=== PATIENT | male | born 1945 | race Caucasian/White ===

== ENCOUNTER 2019-11-15 17:27 | Observation (INO) | payer OTHER ==
[~2019-11-15] VITALS: Ht 172.7 cm; Wt 90.2 kg
[2019-11-15] MEDS ORDERED: AMLO10 PO (17:44)
[2019-11-15] MEDS ORDERED: ASPIR 8181 M1 PO (17:45)
[2019-11-15] MEDS ORDERED: BUSP10 PO (17:45)
[2019-11-15] MEDS ORDERED: [UNRECOGNIZED DRUG - OTHER] PO (17:45)
[2019-11-15] MEDS ORDERED: CLOBET30L TOP (17:46)
[2019-11-15] MEDS ORDERED: B-121000 MC3 PO (17:47)
[2019-11-15] MEDS ORDERED: DIVA500EC PO (17:47)
[2019-11-15] MEDS ORDERED: FINA5 PO (17:48)
[2019-11-15] MEDS ORDERED: GABA300 PO (17:48)
[2019-11-15] MEDS ORDERED: HYDPAM50 PO (17:49)
[2019-11-15] MEDS ORDERED: LACT PO (17:49)
[2019-11-15] MEDS ORDERED: KETO15TC TOP (17:49)
[2019-11-15] MEDS ORDERED: LISI20 PO (17:55)
[2019-11-15] MEDS ORDERED: LEVSOD50 PO (17:55)
[2019-11-15] MEDS ORDERED: Anti-Diarrheal2 MG PO (17:56)
[2019-11-15] MEDS ORDERED: OMEP20ER PO (17:57)
[2019-11-15] MEDS ORDERED: MIRT15 PO (17:57)
[2019-11-15] MEDS ORDERED: TRAM50 PO (17:58)
[2019-11-15] MEDS ORDERED: SILD50TA PO (17:58)
[2019-11-15] MEDS ORDERED: TAMS.4ER PO (17:58)
[2019-11-15] MEDS ORDERED: TRAZ100 PO (17:59)
[2019-11-15] MEDS ORDERED: ZIPR40 PO (17:59)
--- NOTE | 2019-11-15 20:26 | NUR ---
ADMISSION: PATIENT IS RECIEVED FROM ER VIA STRETCHER. NO REPORT OF PAIN, NAUSEA OR DISCOMFORT. PATIENT HAS A CARE ASST ASSIST WITH MEDICATIONS AT THE [place] [facility] AND CAN NOT COMPLETE MED REC. 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 WOUND THAT IS HEALED NOW BUT HE WAS HOSPITAIZED TWO MONTHS AGO IN A [facility]CHIATR[facility] FACILITY.
[2019-11-15 20:37] LABS: Hematocrit 37.8 % (37.0-53.0); Hemoglobin 12.2 g/dL (13.5-17.5); Mean Corpuscular HGB 29.7 pg (26.0-34.0); Mean Corpuscular HGB Conc 32.3 g/dL (31.5-36.5); Mean Corpuscular Volume 92 fL (80-100); Mean Platelet Volume 12.2 fL (9.1-12.4); Platelet Count 131 K/mm3 (150-400); RDW Coefficient Variation 13.7 % (11.7-14.2); RDW Standard Deviation 46.7 fL (35.1-46.3); Red Blood Cell Count 4.11 M/mm3 (4.30-5.90); White Blood Cell Count 5.63 K/mm3 (4.00-11.30)
--- NOTE | 2019-11-15 21:39 | NUR ---
LAB CLARIFICATION: H&H IS ORDERED FOR 2199, H&H WAS DRAWN ON ADMISSION AT 2027, RESULT 12.2/37.8. MARIA GUADALUPE BAKER [employer] INST[employer]ER WAS NOTIFIED AND ORDER TO RETIME LAB FOR MIDNIGHT AND THEN O5OO IN THE AM. LAB WAS NOTIFIED OF CHANGE.
[2019-11-15] MEDS ORDERED: Hair, Skin & N1 EACH PO (23:28)
[2019-11-16 00:37] LABS: Hematocrit 33.8 % (37.0-53.0); Hemoglobin 10.8 g/dL (13.5-17.5); Mean Corpuscular HGB 29.3 pg (26.0-34.0); Mean Corpuscular Volume 92 fL (80-100); Mean Platelet Volume 12.1 fL (9.1-12.4); Platelet Count 117 K/mm3 (150-400); RDW Coefficient Variation 13.9 % (11.7-14.2); RDW Standard Deviation 46.8 fL (35.1-46.3); Red Blood Cell Count 3.68 M/mm3 (4.30-5.90)
[2019-11-16 07:04] LABS: Hematocrit 32.4 % (37.0-53.0); Hemoglobin 10.5 g/dL (13.5-17.5); Mean Corpuscular HGB 29.7 pg (26.0-34.0); Mean Corpuscular HGB Conc 32.4 g/dL (31.5-36.5); Mean Corpuscular Volume 92 fL (80-100); Mean Platelet Volume 12.2 fL (9.1-12.4); Platelet Count 129 K/mm3 (150-400); RDW Coefficient Variation 13.8 % (11.7-14.2); RDW Standard Deviation 46.3 fL (35.1-46.3); Red Blood Cell Count 3.54 M/mm3 (4.30-5.90); White Blood Cell Count 4.69 K/mm3 (4.00-11.30)
--- NOTE | 2019-11-16 07:24 | NUR ---
SHIFT SUMMARY: PATIENT IS A&O X4, WITHDRAWN, NO REPORTS OF PAIN, FINE TREMORS ARE OBSERVED IN BILAT UPPER EXT. BP IS ELEVATED THIS AM, PATIENT IS ASYMPTOMATIC. INFECT CONTROL RN REVIEWED MRSA HISTORY AND IT IS DECIDED PATIENT DOES REQUIRE CONTACT ISOLATION.
--- NOTE | 2019-11-16 12:29 | NUR ---
History, Chart, Medications and Allergies reviewed before start of procedure. Patient confirms NPO status and agrees with scheduled surgery.
--- NOTE | 2019-11-16 12:52 | NUR ---
11/16/19 1252 Fuad Rush PATIENT DETERMINED TO BE ASA APPROPRIATE FOR PROPOFOL SEDATION PRIOR TO START OF PROCEDURE BY DR. Kristine Newberry PlacedPatient to ENDO 13-LEAD EKG REVIEWED WITH PHYSICIAN PRIOR TO START OF PROCEDURE.History, Chart, Medications and Allergies reviewed before start of procedure. MONITOR INTACT WITH CONTINUOUS PULSE OXIMETRY AND INTERMITTENT BP.O2 VIA N/C INTACT THROUGHOUT SEDATION/PROCEDURE.
--- NOTE | 2019-11-16 13:47 | NUR ---
RECEIVED REPORT FROM [facility] WILLIAMSON S/P PROCEDURE. PATIENT RETURNED TO ROOM 326 AT APPROX 1330 AND IS DOING WELL.
--- NOTE | 2019-11-16 17:22 | NUR ---
PATIENT HAS BEEN MOANING AND GROANING SINCE RETURNING FROM HIS SCOPE BECAUSE DR DELAROSA INFORMED HIM THAT HE COULD DISCHARGE TODAY HOWEVER DR ZAMORA FELT DIFFERENTLY AND SAID HE NEEDED TO STAY ONE MORE NIGHT. THE PATIENTS VITALS HAVE BEEN STABLE. DENIES PAIN AND DISCOMFORT. INDEPENDENT IN ROOM. REMAINS ON PROTONIX DRIP. WILL CONTINUE TO MONITOR AND PROVIDE CARE NEEDED.
--- NOTE | 2019-11-16 22:16 | NUR ---
VEIWS: PATIENT SCORES A 4 ON VIWEWS ON ADMISSION, TELI IS ON AND THERE IS ALOT OF ARTIFACT, UNABLE TO DETERMINE UNDERLINING RYTHM, RATE IS 80. THIS CHANGES VEIW SCORE. PATIENT REPORTS NO CHEST PAIN.
[2019-11-17 07:02] LABS: BASOPHILS ABSOLUTE AUTO 0.02 K/mm3 (0.00-0.23); BASOPHILS PERCENT AUTO 0 % (0-2); EOSINOPHILS ABSOLUTE AUTO 0.17 K/mm3 (0.00-0.68); EOSINOPHILS PERCENT AUTO 3 % (0-6); Hematocrit 31.5 % (37.0-53.0); Hemoglobin 10.2 g/dL (13.5-17.5); IMMATURE GRAN ABSOLUTE AUTO 0.01 K/mm3 (0.00-0.10); IMMATURE GRAN PERCENT AUTO 0 % (0-1); LYMPHOCYTES ABSOLUTE AUTO 1.87 K/mm3 (0.84-5.20); LYMPHOCYTES PERCENT AUTO 33 % (21-46); MONOCYTES ABSOLUTE AUTO 0.55 K/mm3 (0.16-1.47); MONOCYTES PERCENT AUTO 10 % (4-13); Mean Corpuscular HGB 29.5 pg (26.0-34.0); Mean Corpuscular HGB Conc 32.4 g/dL (31.5-36.5); Mean Corpuscular Volume 91 fL (80-100); Mean Platelet Volume 12.3 fL (9.1-12.4); NEUTROPHILS ABSOLUTE AUTO 2.98 K/mm3 (1.96-9.15); NEUTROPHILS PERCENT AUTO 53 % (41-73); Platelet Count 132 K/mm3 (150-400); RDW Standard Deviation 46.3 fL (35.1-46.3); Red Blood Cell Count 3.46 M/mm3 (4.30-5.90)
[2019-11-17 07:19] LABS: Bun/Creatinine Ratio 14.1 (12.0-20.0); Calcium, Blood 8.5 mg/dL (8.5-10.1); Creatinine, Blood 1.77 mg/dL (0.60-1.20); Potassium, Blood 3.8 mmol/L (3.5-5.5)
--- NOTE | 2019-11-17 07:23 | NUR ---
SHIFT SUMMARY: PATIENT IS A&OX4, NO COMPLIANTS OF PAIN. VS ARE STABLE WITH ELEVATED BP'S, ASYMPTOMATIC. PATIENT TOLERATED 100% OF DINNER AND SNACK LAST EVENING S/P SCOPE, NO SWALLOW DIFFICULTIES. PATIENT SHOWERED INDEPENDANTLY AND REPORTED SLEEPING WELL.
[2019-11-17] MEDS ORDERED: ACET325 PO (09:47)
--- NOTE | 2019-11-17 10:30 | NUR ---
CALLED [facility] ABOUT SCHEDULING APPT FOR WITHIN WEEK. ST THEY WILL CALL HIM TOMORROW AND SCHEDULE.
--- NOTE | 2019-11-17 11:11 | NUR ---
REVIEW D'C W/PATIENT. FAMILY SERVICES ASSISTANT IN ROOM TO ARRANGE RIDE. AWARE WILL CALL WITH RESULTS OR TO SET UP APPT. AWARE [facility] WILL CALL TOMORROW TO SET UP APPT. REVIEW HOME MEDS. ANSWER ALL QUESTIONS. AWAITING RIDE.
== END 2019-11-17 13:48 | disposition home or self-care (01) ==
LOC: ER 17:27 → MEDS 17:28 → ENPENDDIS 11-17 10:23 → MEDS 11-17 13:48
PROVIDERS: Family Medicine; Internal Medicine Gastroenterology; ADMIT Hospitalist
PROC: 0DB68ZZ Excision of Stomach, Via Natural or Artificial Opening Endoscopic (ICD-10-PCS; principal; 2019-11-16 12:15)
PROC: 0W3P8ZZ Control Bleeding in Gastrointestinal Tract, Via Natural or Artificial Opening Endoscopic (ICD-10-PCS; 2019-11-16 12:15)
DX: K31.7 Polyp of stomach and duodenum (principal); K25.4 Chronic or unspecified gastric ulcer with hemorrhage; I99.8 Other disorder of circulatory system; K21.0 Gastro-esophageal reflux disease with esophagitis; D62 Acute posthemorrhagic anemia; G31.84 Mild cognitive impairment of uncertain or unknown etiology; I10 Essential (primary) hypertension; N40.0 Benign prostatic hyperplasia without lower urinary tract symptoms; E03.9 Hypothyroidism, unspecified; F41.9 Anxiety disorder, unspecified; F31.9 Bipolar disorder, unspecified; E66.9 Obesity, unspecified; Z79.899 Other long term (current) drug therapy; Z79.82 Long term (current) use of aspirin; Z86.718 Personal history of other venous thrombosis and embolism; Z66 Do not resuscitate
CPT/HCPCS: 36415; 80048; 82272; 85025; 85027; 86850; 86900; 86901; 88305; 88342; 93005; 93010; 96361; 96365; 96366; 96374; 96376; 99285-25; A9270-GY; C9113; G0378; J2704; J7030; J7120

== ENCOUNTER 2020-02-07 13:13 | Emergency (ER) | payer OTHER ==
[~2020-02-07] VITALS: Ht 177.8 cm; Wt 81.7 kg
[~2020-02-07 13:13] MED LIST: ACET325 PO; AMLO10 PO; ASPIR 8181 M1 PO; Anti-Diarrheal2 MG PO; B-121000 MC3 PO; BUSP10 PO; CLOBET30L TOP; DIVA500EC PO; FINA5 PO; GABA300 PO; HYDPAM50 PO; Hair, Skin & N1 EACH PO; KETO15TC TOP; LACT PO; LEVSOD50 PO; LISI20 PO; MIRT15 PO; OMEP20ER PO; SILD50TA PO; TAMS.4ER PO; TRAM50 PO; TRAZ100 PO; ZIPR40 PO; [UNRECOGNIZED DRUG - OTHER] PO
[2020-02-07 13:41] LABS: Source, Urine Voided
[2020-02-07 13:44] LABS: Bilirubin, Urine Neg (Neg); Blood, Urine 4+ (Neg); Glucose Qualitative, Urine Neg (Neg); Ketones, Urine 1+ (Neg); Leukocyte Esterase, Urine 1+ (Neg); Nitrite, Urine Neg (Neg); Protein, Urine 2+ (Neg); Urobilinogen, Urine NORM (Normal)
[2020-02-07 14:01] LABS: Appearance, Urine Clear (Clear); Color, Urine Yellow (P-Yellow)
[2020-02-07 14:03] LABS: Bacteria Not Seen /hpf; Squamous Epithelial Cells Not Seen /hpf (Few)
[2020-02-07 14:18] LABS: BASOPHILS ABSOLUTE AUTO 0.02 K/mm3 (0.00-0.23); BASOPHILS PERCENT AUTO 0 % (0-2); EOSINOPHILS PERCENT AUTO 0 % (0-6); Hematocrit 41.1 % (37.0-53.0); Hemoglobin 13.1 g/dL (13.5-17.5); IMMATURE GRAN ABSOLUTE AUTO 0.12 K/mm3 (0.00-0.10); IMMATURE GRAN PERCENT AUTO 1 % (0-1); LYMPHOCYTES ABSOLUTE AUTO 0.86 K/mm3 (0.84-5.20); LYMPHOCYTES PERCENT AUTO 5 % (21-46); MONOCYTES ABSOLUTE AUTO 1.47 K/mm3 (0.16-1.47); MONOCYTES PERCENT AUTO 8 % (4-13); Mean Corpuscular HGB 29.7 pg (26.0-34.0); Mean Corpuscular HGB Conc 31.9 g/dL (31.5-36.5); Mean Corpuscular Volume 93 fL (80-100); Mean Platelet Volume 12.3 fL (9.1-12.4); NEUTROPHILS ABSOLUTE AUTO 15.93 K/mm3 (1.96-9.15); NEUTROPHILS PERCENT AUTO 87 % (41-73); Platelet Count 120 K/mm3 (150-400); RDW Coefficient Variation 13.8 % (11.7-14.2); RDW Standard Deviation 46.8 fL (35.1-46.3); Red Blood Cell Count 4.41 M/mm3 (4.30-5.90)
[2020-02-07 14:49] LABS: Albumin, Blood 2.8 g/dL (3.4-5.0); Albumin/Globulin Ratio 0.6 (0.8-1.8); Bilirubin, Total 0.6 mg/dL (0.1-1.0); Bun/Creatinine Ratio 8.8 (12.0-20.0); Creatinine, Blood 1.6 mg/dL (0.60-1.20); Globulin, Blood 4.6 g/dL (2.2-4.0); Potassium, Blood 4.2 mmol/L (3.5-5.5); Total Protein, Blood 7.4 g/dL (6.4-8.2)
[2020-02-07] MEDS ORDERED: Cipro500 MG PO (15:44)
== END 2020-02-07 16:48 | disposition home or self-care (01) ==
LOC: ER 13:13
PROVIDERS: Emergency Medicine
DX: N39.0 Urinary tract infection, site not specified (principal); I10 Essential (primary) hypertension; F41.9 Anxiety disorder, unspecified; N40.0 Benign prostatic hyperplasia without lower urinary tract symptoms; K21.9 Gastro-esophageal reflux disease without esophagitis; E03.9 Hypothyroidism, unspecified; F31.9 Bipolar disorder, unspecified; Z88.8 Allergy status to other drugs, medicaments and biological substances; Z79.899 Other long term (current) drug therapy; Z79.82 Long term (current) use of aspirin; Z87.891 Personal history of nicotine dependence
CPT/HCPCS: 36415; 80053; 81001; 83605; 83690; 85025; 87077; 87086; 87186; 96365; 99284-25; J0696; J7030

== ENCOUNTER 2020-02-08 16:46 | Emergency (ER) | payer OTHER ==
[~2020-02-08] VITALS: Ht 180.3 cm; Wt 90.7 kg
[~2020-02-08 16:46] MED LIST changes: +Cipro500 MG PO
[2020-02-08 17:25] LABS: BASOPHILS ABSOLUTE AUTO 0.02 K/mm3 (0.00-0.23); BASOPHILS PERCENT AUTO 0 % (0-2); EOSINOPHILS ABSOLUTE AUTO 0.02 K/mm3 (0.00-0.68); EOSINOPHILS PERCENT AUTO 0 % (0-6); Hematocrit 39.5 % (37.0-53.0); Hemoglobin 12.8 g/dL (13.5-17.5); IMMATURE GRAN ABSOLUTE AUTO 0.04 K/mm3 (0.00-0.10); IMMATURE GRAN PERCENT AUTO 0 % (0-1); LYMPHOCYTES ABSOLUTE AUTO 0.85 K/mm3 (0.84-5.20); LYMPHOCYTES PERCENT AUTO 7 % (21-46); MONOCYTES ABSOLUTE AUTO 1.01 K/mm3 (0.16-1.47); MONOCYTES PERCENT AUTO 8 % (4-13); Mean Corpuscular HGB 30.2 pg (26.0-34.0); Mean Corpuscular HGB Conc 32.4 g/dL (31.5-36.5); Mean Corpuscular Volume 93 fL (80-100); Mean Platelet Volume 12.4 fL (9.1-12.4); NEUTROPHILS ABSOLUTE AUTO 10.58 K/mm3 (1.96-9.15); NEUTROPHILS PERCENT AUTO 84 % (41-73); Platelet Count 129 K/mm3 (150-400); RDW Coefficient Variation 13.6 % (11.7-14.2); RDW Standard Deviation 46.5 fL (35.1-46.3); Red Blood Cell Count 4.24 M/mm3 (4.30-5.90); White Blood Cell Count 12.52 K/mm3 (4.00-11.30)
[2020-02-08 17:38] LABS: Alanine Aminotransfer (ALT/SGP 17 U/L (12-78); Albumin, Blood 2.8 g/dL (3.4-5.0); Albumin/Globulin Ratio 0.6 (0.8-1.8); Alk Phos 66 U/L (50-136); Anion Gap 5 mmol/L (6-16); Aspartate Aminotrans (AST/SGOT 11 U/L (12-37); Bilirubin, Total 0.5 mg/dL (0.1-1.0); Blood Urea Nitrogen 15 mg/dL (8-24); Bun/Creatinine Ratio 10.1 (12.0-20.0); CO2, Blood 25 mmol/L (21-32); Calcium, Blood 9.2 mg/dL (8.5-10.1); Chloride, Blood 109 mmol/L (98-108); Creatinine, Blood 1.48 mg/dL (0.60-1.20); Globulin, Blood 4.5 g/dL (2.2-4.0); Glomerular Filtration Rate 49 (60-); Glucose, Blood 109 mg/dL (70-99); Sodium, Blood 139 mmol/L (136-145); Total Protein, Blood 7.3 g/dL (6.4-8.2)
[2020-02-08 18:52] LABS: Source, Urine Clean Catch
[2020-02-08 19:00] LABS: Bilirubin, Urine Neg (Neg); Blood, Urine 4+ (Neg); Glucose Qualitative, Urine Neg (Neg); Ketones, Urine Neg (Neg); Leukocyte Esterase, Urine 2+ (Neg); Nitrite, Urine Neg (Neg); Protein, Urine 2+ (Neg); Urobilinogen, Urine NORM (Normal); pH, Urine 6.5 (5.0-8.0)
[2020-02-08 19:01] LABS: Appearance, Urine Clear (Clear); Color, Urine Yellow (P-Yellow)
[2020-02-08 19:08] LABS: Red Blood Cells, Urine 0-2 /hpf (0-2); Squamous Epithelial Cells Not Seen /hpf (Few)
[2020-02-08 19:09] LABS: Bacteria Few /hpf
[2020-02-08 19:10] LABS: U Amphetamine Screen Not Detected; U Barbituate Screen Not Detected; U Benzodiazapine Screen Not Detected; U Cocaine Screen Not Detected; U Methadone Screen Not Detected; U Methamphetamine Screen Not Detected; U Opiates Screen DETECTED; U Phencyclidine Screen Not Detected
[2020-02-08 19:11] LABS: U Buprenorphine Screen Not Detected; U Cannabinoids Screen Not Detected; U Oxycodone Screen Not Detected; U Propoxyphene Screen Not Detected
== END 2020-02-08 20:14 | disposition home or self-care (01) ==
LOC: ER 16:46
PROVIDERS: Emergency Medicine
DX: H20.9 Unspecified iridocyclitis (principal); N39.0 Urinary tract infection, site not specified; Z88.8 Allergy status to other drugs, medicaments and biological substances; Z79.899 Other long term (current) drug therapy; Z79.82 Long term (current) use of aspirin; Z79.2 Long term (current) use of antibiotics; I10 Essential (primary) hypertension; F41.9 Anxiety disorder, unspecified; N40.0 Benign prostatic hyperplasia without lower urinary tract symptoms; K21.9 Gastro-esophageal reflux disease without esophagitis; E03.9 Hypothyroidism, unspecified; F43.10 Post-traumatic stress disorder, unspecified; F31.9 Bipolar disorder, unspecified; Z86.718 Personal history of other venous thrombosis and embolism; Z87.891 Personal history of nicotine dependence
CPT/HCPCS: 80053; 81001; 85025; 87086; 93005; 93010; 99285; A9270